=== PATIENT | male | born 1990 | race Caucasian/White ===

== ENCOUNTER 2016-08-12 19:40 | Emergency (ER) | payer MEDICAID, OTHER ==
[~2016-08-12] VITALS: Ht 172.7 cm; Wt 65.8 kg
[2016-08-12 19:58] VITALS: BP_SYST 122
--- NOTE | 2016-08-12 21:01 | NUR ---
Patient to ER bed 01 to gown for evaluation. Side rails up.
--- NOTE | 2016-08-12 21:01 | NUR ---
Pt presents to ED with left tip of finger avulsion approx 2 cm. bleeding controlled , wound cleansed. A&Ox4, denies SOB or chestpain, denies N/V/D. Will continue to monitor
--- NOTE | 2016-08-12 21:02 | NUR ---
Dr Berrios at bedside examining patient
[2016-08-12] MEDS ORDERED: DIPH-TET-PERTUS Vaccine 0.5 ML VIAL (ADACEL) IM ONE (21:15)
[2016-08-12] MEDS ORDERED: BACITRACIN 1 GM OINT TP ONE (21:15)
[2016-08-12 21:20] VITALS: BP_SYST 120
--- NOTE | 2016-08-12 21:20 | NUR ---
Patient given written and verbal discharge instructions and verbalizes understanding. ER MD Berrios discussed with patient the results and treatment provided. Patient in stable condition. ID arm band removed. Rx of tylenol with codeine given. Patient educated on pain management and to follow up with PMD. Pain Scale 0/10 Opportunity for questions provided and answered.
== END 2016-08-12 21:20 | disposition home or self-care (01) ==
LOC: SED 19:40
DX: S61.205A Unspecified open wound of left ring finger without damage to nail, initial encounter (principal); W26.0XXA Contact with knife, initial encounter; Y93.G3 Activity, cooking and baking; Y99.8 Other external cause status; Y92.89 Other specified places as the place of occurrence of the external cause
CPT/HCPCS: 90715; 99283